=== PATIENT | female | born 1980 | race Caucasian/White ===

== ENCOUNTER 2019-09-02 06:59 | Day surgery (SDC) | payer BC ==
[~2019-09-02 06:59] MED LIST: BUPIVACAINE 0.5% 30 ML VIAL INJ ONE; LACTATED RINGERS 1,000 ML ONE
[2019-09-02] MEDS ORDERED: ePHEDrine SULF 50 MG/ML ONE (07:00)
[2019-09-02] MEDS ORDERED: MAGNESIUM SULFATE INJ 1 GM/2 ML VIAL ONE (07:00)
[2019-09-02] MEDS ORDERED: DEXAMETHASONE INJ 10 MG/ML VIAL ONE (07:00)
[2019-09-02] MEDS ORDERED: KETOROLAC TROMETHAMINE INJ 30 MG/ML VIAL ONE (07:00)
[2019-09-02] MEDS ORDERED: LIDOCAINE 1% 10 ML VIAL INJ ONE (07:00)
[2019-09-02] MEDS ORDERED: SODIUM CHLORIDE 0.9% 50 ML VIAL ONE (07:00)
[2019-09-02] MEDS ORDERED: diphenhydrAMINE HCL 50 MG/ML VIAL ONE (07:00)
[2019-09-02] MEDS ORDERED: PROPOFOL 200 MG/20 ML VIAL IV ONE (07:00)
[2019-09-02] MEDS ORDERED: MIDAZOLAM INJ 2 MG/2 ML VIAL ONE (07:53)
[2019-09-02] MEDS ORDERED: fentaNYL CITRATE INJ 50 MCG/ML 2 ML AMP ONE (07:53)
[2019-09-02] MEDS ORDERED: KETAMINE HCL 100 MG/ML VIAL ONE (07:53)
[2019-09-02] MEDS ORDERED: ROCURONIUM BROMIDE 10 MG/ML VIAL ONE (07:53)
[2019-09-02] MEDS ORDERED: BUPIVACAINE 0.5% 30 ML VIAL INJ ONE (08:16)
[2019-09-02] MEDS ORDERED: SUGAMMADEX SODIUM 200 MG/2 ML VIAL IV ONE (09:01)
--- NOTE | 2019-09-02 09:48 | OP ---
DATE OF PROCEDURE: 09/02/19 PREOPERATIVE DIAGNOSIS: 1. Abdominal pain. 2. Biliary dyskinesia. POSTOPERATIVE DIAGNOSIS: 1. Abdominal pain. 2. Biliary dyskinesia. PROCEDURE: 1. Laparoscopic cholecystectomy. SURGEON: Dung Albarran MD. ANESTHESIA: General and local. FINDINGS: Normal anatomy. COMPLICATIONS: None. ESTIMATED BLOOD LOSS: Minimal. SPECIMEN: Gallbladder. PLAN: Discharge. INDICATION: As stated. PROCEDURE: General anesthesia was induced. The patient was prepped and draped in sterile fashion. Marcaine 0.5% with epinephrine was used at all incision sites. While maintaining upward traction, a doroteo was made near the base of the umbilicus. Veress needle was introduced. There was free flow of fluid into the peritoneal cavity which was insufflated to an appropriate level with CO2 gas. The 5 mm trocar was placed followed by the camera. There was no evidence of bleeding or bowel injury. The patient was positioned and subxiphoid and lateral ports were placed under direct visualization. The gallbladder fundus was easily identified. It was grasped and retracted superiorly and laterally. The infundibulum was grasped. The infundibular structures were dissected free until the duct and artery were clearly visualized through the triangle of Calot. The gallbladder was then dissected off the fossa in toto and removed in the EndoCatch bag. There was one small vessel in the mid fossa, possibly duct of Luschka, so a clip was placed on here too. The fossa was examined. It was completely hemostatic. The clips were intact. There was no bleeding or bile leak. All aspirate was clear. The subxiphoid fascia was then closed with 0 Vicryl using the suture passer. It was airtight and non-bleeding. The remaining trocars were removed. There was no bleeding from the trocar sites. The wounds were irrigated and closed with Monocryl. Dressings were applied. The patient was awakened and taken to Recovery to be discharged. #[id number] [facility]
[2019-09-02] MEDS ORDERED: ONDANSETRON INJ 4 MG/2 ML VIAL ONE (09:50)
[2019-09-02] MEDS: HYDROmorphone HCL INJ 2 MG/ML VIAL ONE ×2 (09:55→10:05)
[2019-09-02] MEDS ORDERED: ACETAMINOPHEN W/COD #3 TAB 1 EA TAB ONE (10:41)
[2019-09-02 14:27] VITALS: BP 103/65; TEMP 97.8; O2SAT 98
== END 2019-09-02 11:35 | disposition home or self-care (01) ==
LOC: AMB 06:59
PROVIDERS: ATTEND Surgery
DX: K80.10 Calculus of gallbladder with chronic cholecystitis without obstruction (principal); K82.8 Other specified diseases of gallbladder; Z98.84 Bariatric surgery status; Z98.51 Tubal ligation status
CPT/HCPCS: 00790; 36415; 47562; 80048; 81025; 85025; A4216; J1100; J1170; J1200; J1885; J2250; J2405; J3010; J3475; J3490; J7120